=== PATIENT | male | born 1990 | race Hispanic/Latino ===

== ENCOUNTER 2019-09-11 10:19 | Emergency (ER) | payer OTHER, SELFPAY | END 2019-09-11 11:56 | disposition home or self-care (01) | LOC: EDBD 10:19 → EDH 10:19 | DX: U07.1 COVID-19 (principal); J12.89 Other viral pneumonia | CPT/HCPCS: 36415; 71045; 99284; U0003 ==

== ENCOUNTER 2020-08-02 16:19 | Emergency (ER) | payer OTHER ==
[~2020-08-02] VITALS: Ht 172.7 cm; Wt 80.7 kg
== END 2020-08-02 17:07 | disposition home or self-care (01) ==
LOC: EDH 16:19
DX: S61.012A Laceration without foreign body of left thumb without damage to nail, initial encounter (principal); W27.0XXA Contact with workbench tool, initial encounter; Y93.89 Activity, other specified; Y92.89 Other specified places as the place of occurrence of the external cause; Y99.8 Other external cause status
CPT/HCPCS: 99281